=== PATIENT | female | born 1965 | race Two or more races ===

== ENCOUNTER → 2016-11-07 | Outpatient (REF) | payer MEDICARE, MEDICAID | LOC: M SMT 12:50 | PROVIDERS: ATTEND Nurse Practitioner Women's Health | DX: R35.0 Frequency of micturition (principal) | CPT/HCPCS: 81001; 87086; G0463 ==

== ENCOUNTER → 2020-02-24 | Outpatient (REF) | payer MEDICARE, MEDICAID ==
[2020-02-25 11:18] LABS: APPEARANCE, URINE HAZY (CLEAR); BACTERIA, URINE AUTO NEGATIVE (NEGATIVE); BILIRUBIN, URINE AUTO NEGATIVE (NEGATIVE); BLOOD, URINE BLOOD NEGATIVE (NEGATIVE); CALCIUM OXALATE CRYSTALS MODERATE; COLOR, URINE AMBER (YELLOW); GLUCOSE, URINE (UA) AUTO NEGATIVE (NEGATIVE); KETONE, URINE AUTO NEGATIVE (NEGATIVE); LEUKOCYTE ESTERASE, URINE AUTO NEGATIVE (NEGATIVE); MUCUS, URINE SMALL (NEGATIVE); NITRITE, URINE AUTO NEGATIVE (NEGATIVE); PROTEIN, URINE AUTO NEGATIVE (NEGATIVE); RBC, URINE AUTO 2 /HPF (0-3); SPECIFIC GRAVITY URINE AUTO 1.016 (1.002-1.035); SQUAMOUS EPITHELIAL CELL UR AU 1 /HPF (0-6); UROBILINOGEN, URINE AUTO 0.2 mg/dL (0.0-2.0); WBC, URINE AUTO 0 /HPF (0-3)
== END ==
LOC: M SMT 10:33
PROVIDERS: ATTEND Nurse Practitioner Women's Health
DX: N39.0 Urinary tract infection, site not specified (principal)

== ENCOUNTER → 2021-01-01 | Outpatient (CLI) | payer MEDICARE, MEDICAID ==
--- NOTE | 2021-01-03 11:04 | ECHO ---
DATE OF PROCEDURE: 01/01/2021 Age: 55 Gender: Female Height: 68 inches Weight: 206 pounds Body surface area: 2.07 m2 PATIENT LOCATION: Outpatient. REFERRING PHYSICIAN: Ru Polk M.D. INDICATION: Hypertension. Hypoxemia. MEASUREMENTS: 2D Measurements: RV 4.2 cm LV 4.0 cm Septum 1.2 cm Posterior wall 1.2 cm Aortic Root 3.4 cm LA 4.0 cm LVEF 65-70% Doppler Measurements: AV 1.6 m/s LVOT 1.17 m/s LVOT diameter 2.0 cm MV-E 49, A 64, E/A ratio 0.8 Early mitral deceleration time 204 msec E prime medial 4.3, A prime medial 11, E prime lateral 9 Average E/E prime ratio 7.4/PCWP - 11 mmHg PV 0.8 m/s Pulmonary artery acceleration time 66 msec RVSP 40-50 mmHg IVC 1.8 cm COMMENTS: Normal sinus rhythm without intraventricular conduction disturbance. Somewhat challenging study in light of the patients body habitus, but diagnostically useful information was still obtained. Borderline concentric left ventricular hypertrophy with hyperkinetic wall motion. Mildly dilated left atrium with grade 1 LV diastolic dysfunction, but currently normal estimated mean left atrial pressure. Mildly dilated right heart chambers with normal wall motion and Doppler evidence of at least moderate pulmonary hypertension. IVC size upper limits of normal in size with slightly reduced respiratory collapse suggestive of a slightly elevated central venous pressure. Normal aortic dimensions. Marginally thickened three equal size aortic cusps with adequate cusp separation and no more than trace insufficiency. Normal appearing mitral valve apparatus and leaflet excursion with no posterior systolic buckling. Very mild mitral insufficiency (physiologic). Normal appearing tricuspid valve with very mild insufficiency (physiologic). No apparent intracardiac mass or pericardial effusion. MTDD
== END ==
LOC: M CARPUL 14:26
PROVIDERS: ATTEND Internal Medicine Pulmonary Disease
DX: R09.02 Hypoxemia (principal); G47.33 Obstructive sleep apnea (adult) (pediatric); J84.10 Pulmonary fibrosis, unspecified